=== PATIENT | female | born 1965 | race Caucasian/White ===

== ENCOUNTER 2017-01-10 07:29 | Day surgery (SDC) | payer OTHER ==
[~2017-01-10] VITALS: Ht 162.6 cm; Wt 88.5 kg
[~2017-01-10 07:29] MED LIST: ACCOLATE10 MG; AMOXICILLIN/CL875 MG PO; AMOXICILLIN875 MG OR; AMOXICILLIN875 MG PO; ASPIRIN CHEWABL81 MG PO; AUGMENTIN875TAB OR; AUGMENTIN875TAB PO; CHANTIX STARTIN0.5 & PO; CRESTOR20 MG PO; CYCLOBENZAPRINE10 MG PO; FLEXERIL10 MG PO; FLONASE NASAL50 MCG; HYDROCODONE/ACE1 TA1 OR; LEVAQUIN750 MG PO; LEVOTHROID100 MCG OR; LEVOTHYROXIN125 MCG PO; LIPITOR20 MG PO; MULTIVITAMIN; NAPROSYN500 MG PO; NAPROXEN500 MG PO; NIZORAL2 % EX; PREDNISONE20 MG PO; PROAIR HFA IN; SKELAXIN800 MG PO; SYNTHROID100 MCG PO; TESSALON200 MG PO; ULTRAM50 M1 PO; XANAX0.25 MG PO; XANAX0.5 MG PO; ZESTRIL10 M1 PO; ZOLOFT50 MG PO
[2017-01-10] MEDS ORDERED: CYMBALTA30 MG PO (08:42)
[2017-01-10] MEDS ORDERED: NEURONTIN100 MG PO (08:43)
[2017-01-10 12:00] VITALS: BP 149/86
== END 2017-01-10 10:35 | disposition home or self-care (01) | DRG 552 ==
LOC: ORM 07:29
PROVIDERS: ATTEND Anesthesiology Pain Medicine
PROC: 3E0T3BZ Introduction of Anesthetic Agent into Peripheral Nerves and Plexi, Percutaneous Approach (ICD-10-PCS; principal; 2017-01-10)
PROC: 3E0T33Z Introduction of Anti-inflammatory into Peripheral Nerves and Plexi, Percutaneous Approach (ICD-10-PCS; 2017-01-10)
DX: M54.2 Cervicalgia (principal); M25.519 Pain in unspecified shoulder; R06.4 Hyperventilation

== ENCOUNTER 2017-01-24 07:17 | Day surgery (SDC) | payer OTHER ==
[~2017-01-24] VITALS: Ht 162.6 cm; Wt 88.5 kg
[~2017-01-24 07:17] MED LIST changes: +CYMBALTA30 MG PO; +NEURONTIN100 MG PO
[2017-01-24 09:19] VITALS: BP 121/64
== END 2017-01-24 09:45 | disposition home or self-care (01) | DRG 552 ==
LOC: ORM 07:17
PROVIDERS: ATTEND Anesthesiology Pain Medicine
PROC: 3E0U33Z Introduction of Anti-inflammatory into Joints, Percutaneous Approach (ICD-10-PCS; principal; 2017-01-24)
PROC: 3E0U3BZ Introduction of Anesthetic Agent into Joints, Percutaneous Approach (ICD-10-PCS; 2017-01-24)
DX: M54.2 Cervicalgia (principal)

== ENCOUNTER 2017-02-06 10:25 | Inpatient (IN) | payer OTHER ==
[~2017-02-06] VITALS: Ht 162.6 cm; Wt 84.6 kg
[2017-02-06 11:00] LABS: HEMATOCRIT 53.1 % (37.0-47.0); HEMOGLOBIN 17.4 g/dl (12.0-16.0); IMMATURE GRANULOCYTES 0.5 % (0.0-1.0); MEAN CELL VOLUME 93.3 fL CALC (80.0-100.0); MEAN CORPUSCULAR HGB 30.6 pG CALC (26.0-32.0); MEAN CORPUSCULAR HGB CONC 32.8 g/L CALC (32.0-36.0); NEUT# 7.63 thou/uL (2.00-7.15); RED BLOOD COUNT 5.69 mill/uL (4.20-5.60); RED CELL DISTRI WIDTH 13.2 % (11.5-15.5)
[2017-02-06 11:17] LABS: ALBUMIN 4.7 g/dL (3.2-5.0); ALKALINE PHOSPHATASE 120 u/l (38-126); ANION GAP 17 (6-22 (CALC)); BILIRUBIN, TOTAL 0.7 mg/dL (0.0-1.4); BUN 14 mg/dL (7-17); BUN/CREATININE RATIO 20 (12-20 (CALC)); CALCIUM 9.8 mg/dL (8.4-10.2); CARBON DIOXIDE 30 mmol/l (22-30); CHLORIDE 98 mmol/l (95-108); CREATININE 0.7 mg/dL (0.5-1.0); GFR > 60 ML/MIN (>=60 (CALC)); GFR FOR AFR.AMER. > 60 ML/MIN (>=60 (CALC)); GLUCOSE 160 mg/dL (65-105); POTASSIUM 4.5 mmol/l (3.5-5.1); SGOT/AST 37 u/l (14-36); SGPT/ALT 61 u/l (9-52); SODIUM 140 mmol/l (137-146); TOTAL PROTEIN 8.5 g/dL (6.3-8.2)
[2017-02-06 11:19] LABS: INFLUENZA A NONE DETECTED (NONE DETECT); INFLUENZA B NONE DETECTED (NONE DETECT)
[2017-02-06 11:28] LABS: MYOGLOBIN 52 ng/mL (0 - 62)
[2017-02-06 13:49] VITALS: BP 138/84
[2017-02-06 17:00] VITALS: BP 135/69
[2017-02-06 19:47] VITALS: BP 145/70
[2017-02-07 04:32] VITALS: BP 132/76
[2017-02-07 05:10] LABS: HEMATOCRIT 46.7 % (37.0-47.0); HEMOGLOBIN 15.3 g/dl (12.0-16.0); IMMATURE GRANULOCYTES 0.7 % (0.0-1.0); MEAN CELL VOLUME 93.8 fL CALC (80.0-100.0); MEAN CORPUSCULAR HGB 30.7 pG CALC (26.0-32.0); MEAN CORPUSCULAR HGB CONC 32.8 g/L CALC (32.0-36.0); NEUT# 6.09 thou/uL (2.00-7.15); RED BLOOD COUNT 4.98 mill/uL (4.20-5.60); RED CELL DISTRI WIDTH 13.2 % (11.5-15.5)
[2017-02-07 05:36] LABS: ANION GAP 16 (6-22 (CALC)); BUN 15 mg/dL (7-17); BUN/CREATININE RATIO 22 (12-20 (CALC)); CALCIUM 9.5 mg/dL (8.4-10.2); CALCULATED LDLCHOLESTEROL 94 mg/dL (62-129 (CALC)); CARBON DIOXIDE 27 mmol/l (22-30); CHLORIDE 101 mmol/l (95-108); CREATININE 0.7 mg/dL (0.5-1.0); GFR > 60 ML/MIN (>=60 (CALC)); GFR FOR AFR.AMER. > 60 ML/MIN (>=60 (CALC)); GLUCOSE 157 mg/dL (65-105); HDL CHOLESTEROL 47 mg/dL (>=40); POTASSIUM 4.5 mmol/l (3.5-5.1); SODIUM 139 mmol/l (137-146); TOTAL CHOLESTEROL 154 mg/dl (0-199); TOTAL TRIGLYCERIDES 64 mg/dl (30-149); VLDL CHOLESTROL 13 mg/dl (2-49 (CALC))
[2017-02-07 08:35] VITALS: BP 121/75
[2017-02-07 10:43] LABS: URINE BILIRUBIN - DIPSTICK NEGATIVE (NEGATIVE); URINE BLOOD DIPSTICK SMALL (NEGATIVE); URINE CLARITY CLEAR; URINE COLOR YELLOW; URINE GLUCOSE - DIPSTICK NEGATIVE (NEGATIVE); URINE KETONE NEGATIVE (NEGATIVE); URINE LEUK ESTERASE NEGATIVE (NEGATIVE); URINE NITRITE - DIPSTICK NEGATIVE (Negative); URINE PROTEIN - DIPSTICK NEGATIVE (NEG-TRACE); URINE UROBILINOGEN - DIPSTICK 0.2 E.U./dL (0.2)
[2017-02-07 10:52] LABS: URINE SQUAMOUS EPITHELIAL CELL FEW EPI/hpf (0-FEW)
[2017-02-07 10:53] LABS: URINE BACTERIA FEW hpf; URINE RBC 0-2 RBC/hpf (0-5)
[2017-02-07 15:40] VITALS: BP 127/60
[2017-02-07 19:48] VITALS: BP 133/55
[2017-02-08 05:15] VITALS: BP 106/48
[2017-02-08 08:15] VITALS: BP 118/42
[2017-02-08 16:11] VITALS: BP 107/59
[2017-02-08 19:05] VITALS: BP 126/64
[2017-02-09 03:51] VITALS: BP 119/52
[2017-02-09 06:05] LABS: HEMATOCRIT 46.3 % (37.0-47.0); HEMOGLOBIN 14.8 g/dl (12.0-16.0); IMMATURE GRANULOCYTES 0.9 % (0.0-1.0); MEAN CELL VOLUME 96.9 fL CALC (80.0-100.0); NEUT# 8.82 thou/uL (2.00-7.15); RED BLOOD COUNT 4.78 mill/uL (4.20-5.60); RED CELL DISTRI WIDTH 13.4 % (11.5-15.5)
[2017-02-09 06:12] LABS: ANION GAP 15 (6-22 (CALC)); BUN 20 mg/dL (7-17); BUN/CREATININE RATIO 28 (12-20 (CALC)); CALCIUM 9.7 mg/dL (8.4-10.2); CARBON DIOXIDE 31 mmol/l (22-30); CHLORIDE 98 mmol/l (95-108); CREATININE 0.7 mg/dL (0.5-1.0); GFR > 60 ML/MIN (>=60 (CALC)); GFR FOR AFR.AMER. > 60 ML/MIN (>=60 (CALC)); GLUCOSE 166 mg/dL (65-105); SODIUM 139 mmol/l (137-146)
[2017-02-09 07:36] VITALS: BP 106/66
[2017-02-09 08:56] VITALS: BP 106/66
[2017-02-09] MEDS ORDERED: LEVAQUIN750 MG PO (11:05)
[2017-02-09] MEDS ORDERED: BIOTUSSIN PO (11:05)
[2017-02-09] MEDS ORDERED: IPRATROPIU0.5 MG/3 M NEB (11:05)
[2017-02-09] MEDS ORDERED: LOSARTAN POT50 MG PO (11:05)
[2017-02-09] MEDS ORDERED: PREDNISONE10 MG PO (11:05)
== END 2017-02-09 12:45 | disposition home or self-care (01) | DRG 189 ==
LOC: ENPENDDIS → ED 10:25 → ED-I 11:55 → ED 12:38 → MS2 12:39
PROVIDERS: Emergency Medicine; ADMIT Internal Medicine; ATTEND Internal Medicine
DX: J96.21 Acute and chronic respiratory failure with hypoxia (principal); J44.1 Chronic obstructive pulmonary disease with (acute) exacerbation; I10 Essential (primary) hypertension; E03.9 Hypothyroidism, unspecified; E78.5 Hyperlipidemia, unspecified; F32.9 Major depressive disorder, single episode, unspecified; M19.90 Unspecified osteoarthritis, unspecified site; F17.210 Nicotine dependence, cigarettes, uncomplicated; F41.9 Anxiety disorder, unspecified; M48.00 Spinal stenosis, site unspecified
CPT/HCPCS: J1650

== ENCOUNTER 2017-04-21 22:06 | Emergency (ER) | payer OTHER ==
[~2017-04-21] VITALS: Ht 162.6 cm; Wt 86.8 kg
[~2017-04-21 22:06] MED LIST changes: +BIOTUSSIN PO; +IPRATROPIU0.5 MG/3 M NEB; +LOSARTAN POT50 MG PO; +PREDNISONE10 MG PO
[2017-04-21] MEDS ORDERED: LIDOCAINE22 EX (23:20)
[2017-04-21] MEDS ORDERED: LORTAB 10-325 M1 TAB PO (23:20)
[2017-04-21] MEDS ORDERED: ANUCORT-HC25 MG RE (23:20)
[2017-04-21 23:33] VITALS: BP 137/82
== END 2017-04-21 23:35 | disposition home or self-care (01) | DRG 395 ==
LOC: ED 22:06
DX: K64.4 Residual hemorrhoidal skin tags (principal); K62.89 Other specified diseases of anus and rectum

== ENCOUNTER 2017-09-18 10:09 | Observation (INO) | payer OTHER ==
[~2017-09-18] VITALS: Ht 162.6 cm; Wt 81.0 kg
[~2017-09-18 10:09] MED LIST changes: +ANUCORT-HC25 MG RE; +LIDOCAINE22 EX; +LORTAB 10-325 M1 TAB PO
[2017-09-18 11:47] LABS: HEMATOCRIT 46.7 % (37.0-47.0); IMMATURE GRANULOCYTES 0.5 % (0.0-1.0); MEAN CELL VOLUME 89.3 fL CALC (80.0-100.0); MEAN CORPUSCULAR HGB 30.6 pG CALC (26.0-32.0); MEAN CORPUSCULAR HGB CONC 34.3 g/L CALC (32.0-36.0); NEUT# 6.61 thou/uL (2.00-7.15); RED BLOOD COUNT 5.23 mill/uL (4.20-5.60); RED CELL DISTRI WIDTH 12.7 % (11.5-15.5)
[2017-09-18 11:59] LABS: ALBUMIN 4.7 g/dL (3.2-5.0); ALKALINE PHOSPHATASE 108 u/l (38-126); ANION GAP 15 (6-22 (CALC)); BILIRUBIN, TOTAL 0.4 mg/dL (0.0-1.4); BUN 8 mg/dL (7-17); BUN/CREATININE RATIO 12 (12-20 (CALC)); CALCIUM 9.5 mg/dL (8.4-10.2); CARBON DIOXIDE 28 mmol/l (22-30); CHLORIDE 105 mmol/l (95-108); CREATININE 0.7 mg/dL (0.5-1.0); GFR > 60 ML/MIN (>=60 (CALC)); GFR FOR AFR.AMER. > 60 ML/MIN (>=60 (CALC)); GLUCOSE 124 mg/dL (65-105); POTASSIUM 3.7 mmol/l (3.5-5.1); SGOT/AST 33 u/l (14-36); SGPT/ALT 48 u/l (9-52); SODIUM 145 mmol/l (137-146); TOTAL PROTEIN 7.5 g/dL (6.3-8.2)
[2017-09-18 12:11] LABS: MYOGLOBIN 83 ng/mL (0 - 62)
[2017-09-18 15:08] VITALS: BP 140/70
[2017-09-18 16:34] LABS: CHOLESTEROL HDL RATIO 4.7 (<4.4 (CALC))
[2017-09-18 19:00] VITALS: BP 128/67
[2017-09-18 20:53] LABS: URINE BILIRUBIN - DIPSTICK NEGATIVE (NEGATIVE); URINE BLOOD DIPSTICK SMALL (NEGATIVE); URINE COLOR YELLOW; URINE GLUCOSE - DIPSTICK NEGATIVE (NEGATIVE); URINE KETONE NEGATIVE (NEGATIVE); URINE LEUK ESTERASE NEGATIVE (NEGATIVE); URINE NITRITE - DIPSTICK NEGATIVE (Negative); URINE PROTEIN - DIPSTICK NEGATIVE (NEG-TRACE); URINE UROBILINOGEN - DIPSTICK 0.2 E.U./dL (0.2)
[2017-09-18 21:05] LABS: URINE CLARITY CLEAR; URINE WBC 0-2 WBC/hpf (0-5)
[2017-09-18 21:06] LABS: URINE SQUAMOUS EPITHELIAL CELL FEW EPI/hpf (0-FEW)
[2017-09-19 05:22] VITALS: BP 112/68
[2017-09-19 06:04] LABS: HEMATOCRIT 46.5 % (37.0-47.0); HEMOGLOBIN 15.8 g/dl (12.0-16.0); IMMATURE GRANULOCYTES 0.9 % (0.0-1.0); MEAN CELL VOLUME 89.4 fL CALC (80.0-100.0); MEAN CORPUSCULAR HGB 30.4 pG CALC (26.0-32.0); NEUT# 12.68 thou/uL (2.00-7.15); RED BLOOD COUNT 5.2 mill/uL (4.20-5.60); RED CELL DISTRI WIDTH 12.7 % (11.5-15.5)
[2017-09-19 06:13] LABS: ANION GAP 22 (6-22 (CALC)); BUN 14 mg/dL (7-17); BUN/CREATININE RATIO 16 (12-20 (CALC)); CALCIUM 9.7 mg/dL (8.4-10.2); CARBON DIOXIDE 22 mmol/l (22-30); CHLORIDE 105 mmol/l (95-108); CREATININE 0.9 mg/dL (0.5-1.0); GFR > 60 ML/MIN (>=60 (CALC)); GFR FOR AFR.AMER. > 60 ML/MIN (>=60 (CALC)); GLUCOSE 201 mg/dL (65-105); MAGNESIUM 1.8 mg/dL (1.6-2.3); POTASSIUM 4.1 mmol/l (3.5-5.1); SODIUM 145 mmol/l (137-146)
[2017-09-19 07:35] VITALS: BP 113/69
[2017-09-19 08:17] VITALS: BP 113/69
[2017-09-19] MEDS ORDERED: PREDNISONE10 MG PO (12:14)
[2017-09-19] MEDS ORDERED: ZPAK PO (12:14)
[2017-09-19] MEDS ORDERED: ROBITUSSIN AC10 ML PO (12:43)
== END 2017-09-19 13:00 | disposition home or self-care (01) | DRG 192 ==
LOC: ED 10:09 → ED-I 13:35 → ED 14:19 → MS2 14:20
PROVIDERS: Emergency Medicine; Nurse Practitioner Family; ADMIT Internal Medicine; ATTEND Internal Medicine
DX: J44.1 Chronic obstructive pulmonary disease with (acute) exacerbation (principal); E03.9 Hypothyroidism, unspecified; J44.0 Chronic obstructive pulmonary disease with (acute) lower respiratory infection; J20.9 Acute bronchitis, unspecified; E11.9 Type 2 diabetes mellitus without complications; F17.210 Nicotine dependence, cigarettes, uncomplicated; E78.5 Hyperlipidemia, unspecified; M19.90 Unspecified osteoarthritis, unspecified site; F32.9 Major depressive disorder, single episode, unspecified; Z79.84 Long term (current) use of oral hypoglycemic drugs
CPT/HCPCS: G0378

== ENCOUNTER 2018-03-16 00:16 | Emergency (ER) | payer OTHER ==
[~2018-03-16] VITALS: Ht 162.6 cm; Wt 73.6 kg
[~2018-03-16 00:16] MED LIST changes: +ROBITUSSIN AC10 ML PO; +ZPAK PO
[2018-03-16] MEDS ORDERED: LISINOPRIL20 M1 PO (00:26)
[2018-03-16 01:10] LABS: HEMATOCRIT 49.7 % (37.0-47.0); IMMATURE GRANULOCYTES 0.3 % (0.0-1.0); MEAN CELL VOLUME 89.5 fL CALC (80.0-100.0); MEAN CORPUSCULAR HGB 30.6 pG CALC (26.0-32.0); MEAN CORPUSCULAR HGB CONC 34.2 g/L CALC (32.0-36.0); NEUT# 7.26 thou/uL (2.00-7.15); RED BLOOD COUNT 5.55 mill/uL (4.20-5.60); RED CELL DISTRI WIDTH 13.3 % (11.5-15.5)
[2018-03-16 01:17] LABS: ACT PARTIAL THROMBO TIME 28.2 SECONDS (20.0-32.5); INTERNATIONAL NORMALIZED RATIO 0.9 RATIO (0.7-1.3); PROTHROMBIN TIME 10.4 SECONDS (9.0-12.5)
[2018-03-16 01:35] VITALS: BP 139/88
== END 2018-03-16 01:35 | disposition home or self-care (01) | DRG 151 ==
LOC: ED 00:16
PROVIDERS: Emergency Medicine
DX: R04.0 Epistaxis (principal); F17.210 Nicotine dependence, cigarettes, uncomplicated; I10 Essential (primary) hypertension

== ENCOUNTER 2018-05-12 17:10 | Observation (INO) | payer MEDICAID ==
[~2018-05-12] VITALS: Ht 162.6 cm; Wt 75.3 kg
[~2018-05-12 17:10] MED LIST changes: +LISINOPRIL20 M1 PO
[2018-05-12 17:45] LABS: HEMATOCRIT 47.6 % (37.0-47.0); IMMATURE GRANULOCYTES 1.9 % (0.0-5.0); MEAN CELL VOLUME 92.2 fL CALC (80.0-100.0); MEAN CORPUSCULAR HGB CONC 33.6 g/L CALC (32.0-36.0); NEUT# 11.98 thou/uL (2.00-7.15); RED BLOOD COUNT 5.16 mill/uL (4.20-5.60); RED CELL DISTRI WIDTH 12.6 % (11.5-15.5)
[2018-05-12 17:53] LABS: ALBUMIN 4.6 g/dL (3.2-5.0); ALKALINE PHOSPHATASE 123 u/l (38-126); ANION GAP 15 (6-22 (CALC)); BILIRUBIN, TOTAL 0.3 mg/dL (0.0-1.4); BUN 17 mg/dL (7-17); BUN/CREATININE RATIO 23 (12-20 (CALC)); CARBON DIOXIDE 27 mmol/l (22-30); CHLORIDE 103 mmol/l (95-108); CREATININE 0.8 mg/dL (0.5-1.0); GFR > 60 ML/MIN (>=60 (CALC)); GFR FOR AFR.AMER. > 60 ML/MIN (>=60 (CALC)); POTASSIUM 4.3 mmol/l (3.5-5.1); SGOT/AST 27 u/l (14-36); SGPT/ALT 45 u/l (9-52); SODIUM 140 mmol/l (137-146)
[2018-05-12 18:05] LABS: MYOGLOBIN 36 ng/mL (0 - 62)
[2018-05-12 19:10] VITALS: BP 126/69
[2018-05-13 04:08] VITALS: BP 100/64
[2018-05-13 04:48] LABS: URINE BILIRUBIN - DIPSTICK NEGATIVE (NEGATIVE); URINE BLOOD DIPSTICK MODERATE (NEGATIVE); URINE COLOR YELLOW; URINE GLUCOSE - DIPSTICK NEGATIVE (NEGATIVE); URINE KETONE NEGATIVE (NEGATIVE); URINE LEUK ESTERASE NEGATIVE (NEGATIVE); URINE NITRITE - DIPSTICK NEGATIVE (Negative); URINE PROTEIN - DIPSTICK NEGATIVE (NEG-TRACE); URINE UROBILINOGEN - DIPSTICK 0.2 E.U./dL (0.2)
[2018-05-13 05:41] LABS: URINE CLARITY CLEAR; URINE WBC 0-2 WBC/hpf (0-5)
[2018-05-13 05:42] LABS: URINE BACTERIA RARE hpf
[2018-05-13 07:45] VITALS: BP 117/71
[2018-05-13 15:20] VITALS: BP 118/66
[2018-05-13] MEDS ORDERED: METFORMIN500 M2 PO (16:08)
[2018-05-13 19:00] VITALS: BP 114/66
[2018-05-14 05:04] VITALS: BP 125/68
[2018-05-14 06:01] LABS: HEMATOCRIT 45.9 % (37.0-47.0); IMMATURE GRANULOCYTES 2.1 % (0.0-5.0); MEAN CELL VOLUME 93.9 fL CALC (80.0-100.0); MEAN CORPUSCULAR HGB 30.7 pG CALC (26.0-32.0); MEAN CORPUSCULAR HGB CONC 32.7 g/L CALC (32.0-36.0); NEUT# 10.32 thou/uL (2.00-7.15); RED BLOOD COUNT 4.89 mill/uL (4.20-5.60); RED CELL DISTRI WIDTH 12.5 % (11.5-15.5)
[2018-05-14 06:10] LABS: BUN 21 mg/dL (7-17); BUN/CREATININE RATIO 26 (12-20 (CALC)); CARBON DIOXIDE 29 mmol/l (22-30); CHLORIDE 101 mmol/l (95-108); CREATININE 0.8 mg/dL (0.5-1.0); GFR > 60 ML/MIN (>=60 (CALC)); GFR FOR AFR.AMER. > 60 ML/MIN (>=60 (CALC)); MAGNESIUM 2.2 mg/dL (1.6-2.3); SODIUM 139 mmol/l (137-146)
[2018-05-14 06:21] LABS: ANION GAP 14 (6-22 (CALC)); POTASSIUM 5.2 mmol/l (3.5-5.1)
[2018-05-14 08:40] VITALS: BP 123/52
[2018-05-14 15:00] VITALS: BP 120/67
[2018-05-14 19:58] VITALS: BP 129/58
[2018-05-15 03:45] VITALS: BP 115/57
[2018-05-15 05:45] LABS: ANION GAP 16 (6-22 (CALC)); BUN 24 mg/dL (7-17); BUN/CREATININE RATIO 31 (12-20 (CALC)); CARBON DIOXIDE 28 mmol/l (22-30); CHLORIDE 101 mmol/l (95-108); CREATININE 0.8 mg/dL (0.5-1.0); GFR > 60 ML/MIN (>=60 (CALC)); GFR FOR AFR.AMER. > 60 ML/MIN (>=60 (CALC)); POTASSIUM 4.8 mmol/l (3.5-5.1); SODIUM 140 mmol/l (137-146)
[2018-05-15 08:58] VITALS: BP 110/53
[2018-05-15] MEDS ORDERED: LEVAQUIN750 MG PO (11:38)
[2018-05-15] MEDS ORDERED: PREDNISONE10 MG PO (11:38)
[2018-05-15] MEDS ORDERED: ROBITUSSIN AC10 ML PO (11:38)
== END 2018-05-15 13:00 | disposition home or self-care (01) ==
LOC: ED 17:10 → ED-I 17:57 → ED 18:16 → MS2 18:17
PROVIDERS: Emergency Medicine; Nurse Practitioner Family; ADMIT General Practice; ATTEND General Practice
DX: J44.1 Chronic obstructive pulmonary disease with (acute) exacerbation (principal); J20.9 Acute bronchitis, unspecified; J44.0 Chronic obstructive pulmonary disease with (acute) lower respiratory infection; Z99.81 Dependence on supplemental oxygen; E11.9 Type 2 diabetes mellitus without complications; I10 Essential (primary) hypertension; E03.9 Hypothyroidism, unspecified; F17.210 Nicotine dependence, cigarettes, uncomplicated; E78.5 Hyperlipidemia, unspecified; F32.9 Major depressive disorder, single episode, unspecified; M19.90 Unspecified osteoarthritis, unspecified site; Z79.84 Long term (current) use of oral hypoglycemic drugs; R07.9 Chest pain, unspecified; R06.02 Shortness of breath
CPT/HCPCS: G0378

== ENCOUNTER 2018-09-15 16:55 | Emergency (ER) | payer SELFPAY ==
[~2018-09-15] VITALS: Ht 162.6 cm; Wt 77.3 kg
[~2018-09-15 16:55] MED LIST changes: +METFORMIN500 M2 PO
[2018-09-15] MEDS ORDERED: LEVAQUIN500 MG PO (18:54)
[2018-09-15 19:07] VITALS: BP 120/76
== END 2018-09-15 19:07 | disposition home or self-care (01) | DRG 151 ==
LOC: ED 16:55
PROC: 2Y41X5Z Packing of Nasal Region using Packing Material (ICD-10-PCS; principal; 2018-09-15)
DX: R04.0 Epistaxis (principal); R09.81 Nasal congestion; R51 Headache; F17.210 Nicotine dependence, cigarettes, uncomplicated

== ENCOUNTER 2018-09-16 03:28 | Emergency (ER) | payer SELFPAY ==
[~2018-09-16] VITALS: Ht 162.6 cm; Wt 77.0 kg
[~2018-09-16 03:28] MED LIST changes: +LEVAQUIN500 MG PO
[2018-09-16 05:29] VITALS: BP 142/73
== END 2018-09-16 05:30 | disposition home or self-care (01) | DRG 151 ==
LOC: ED 03:28
PROC: 2Y41X5Z Packing of Nasal Region using Packing Material (ICD-10-PCS; principal; 2018-09-16)
DX: R04.0 Epistaxis (principal); E11.9 Type 2 diabetes mellitus without complications; I10 Essential (primary) hypertension; J44.9 Chronic obstructive pulmonary disease, unspecified; E03.9 Hypothyroidism, unspecified; F41.9 Anxiety disorder, unspecified; F17.200 Nicotine dependence, unspecified, uncomplicated

== ENCOUNTER 2018-10-14 12:20 | Emergency (ER) | payer SELFPAY ==
[~2018-10-14] VITALS: Ht 162.6 cm; Wt 75.0 kg
[2018-10-14] MEDS ORDERED: DELTASONE20 MG PO ×2 (14:55→14:59)
[2018-10-14] MEDS ORDERED: TESSALON PER100 MG PO ×2 (14:55→14:59)
[2018-10-14] MEDS ORDERED: ZITHROMAX250 MG PO (14:56)
[2018-10-14 15:35] VITALS: BP 140/80
== END 2018-10-14 15:45 | disposition home or self-care (01) | DRG 202 ==
LOC: ED 12:20
DX: J40 Bronchitis, not specified as acute or chronic (principal); J44.1 Chronic obstructive pulmonary disease with (acute) exacerbation; F17.290 Nicotine dependence, other tobacco product, uncomplicated; R05 Cough; R09.81 Nasal congestion; R06.02 Shortness of breath; R50.9 Fever, unspecified; R06.2 Wheezing

== ENCOUNTER 2020-01-15 | Emergency (ER) | payer MEDICARE, MEDICAID ==
[~2020-01-15] MED LIST changes: +DELTASONE20 MG PO; +TESSALON PER100 MG PO; +ZITHROMAX250 MG PO
[2020-01-15 14:00] LABS: HEMATOCRIT 49.4 % (37.0-47.0); HEMOGLOBIN 16.3 g/dl (12.0-16.0); IMMATURE GRANULOCYTES 0.6 % (0.0-5.0); MEAN CELL VOLUME 90.5 fL CALC (80.0-100.0); MEAN CORPUSCULAR HGB 29.9 pG CALC (26.0-32.0); NEUT# 10.95 thou/uL (2.00-7.15); RED BLOOD COUNT 5.46 mill/uL (4.20-5.60); RED CELL DISTRI WIDTH 12.9 % (11.5-15.5)
[2020-01-15 14:03] LABS: ALBUMIN 4.8 g/dL (3.2-5.0); ALKALINE PHOSPHATASE 140 u/l (38-126); AMYLASE 65 u/l (30-110); ANION GAP 18 (6-22 (CALC)); BILIRUBIN, TOTAL 0.5 mg/dL (0.0-1.4); BUN 14 mg/dL (7-17); BUN/CREATININE RATIO 16 (12-20 (CALC)); CARBON DIOXIDE 27 mmol/l (22-30); CHLORIDE 98 mmol/l (95-108); CREATININE 0.9 mg/dL (0.5-1.0); GFR > 60 ML/MIN (>=60 (CALC)); GFR FOR AFR.AMER. > 60 ML/MIN (>=60 (CALC)); LIPASE 133 u/l (23-300); POTASSIUM 4.6 mmol/l (3.5-5.1); SGOT/AST 39 u/l (14-36); SODIUM 138 mmol/l (137-146); TOTAL PROTEIN 8.1 g/dL (6.3-8.2)
[2020-01-15 14:57] LABS: URINE BLOOD DIPSTICK LARGE (NEGATIVE); URINE GLUCOSE - DIPSTICK NEGATIVE (NEGATIVE); URINE KETONE NEGATIVE (NEGATIVE); URINE LEUK ESTERASE NEGATIVE (NEGATIVE); URINE NITRITE - DIPSTICK NEGATIVE (Negative); URINE PH 6.5 (4.5-8.0); URINE PROTEIN - DIPSTICK 30 mg/dL (NEG-TRACE); URINE UROBILINOGEN - DIPSTICK 0.2 E.U./dL (0.2)
[2020-01-15 15:03] LABS: URINE BILIRUBIN - DIPSTICK SMALL (NEGATIVE)
[2020-01-15 15:04] LABS: URINE COLOR RED
[2020-01-15 15:10] LABS: URINE RBC TNTC RBC/hpf (0-5); URINE SQUAMOUS EPITHELIAL CELL FEW EPI/hpf (0-FEW)
[2020-01-15] MEDS ORDERED: TAMSULOSIN0.4 MG PO (16:12)
[2020-01-15] MEDS ORDERED: LORTAB 1010 MG PO (16:12)
[2020-01-15] MEDS ORDERED: ONDANSETRON4 MG PO (16:12)
== END 2020-01-15 16:32 | disposition home or self-care (01) ==
PROVIDERS: Emergency Medicine
DX: N20.0 Calculus of kidney (principal); E11.9 Type 2 diabetes mellitus without complications; I10 Essential (primary) hypertension; J44.9 Chronic obstructive pulmonary disease, unspecified; E03.9 Hypothyroidism, unspecified; F17.210 Nicotine dependence, cigarettes, uncomplicated; Z79.84 Long term (current) use of oral hypoglycemic drugs
CPT/HCPCS: Q9967

== ENCOUNTER 2020-01-23 | Day surgery (SDC) | payer MEDICARE, MEDICAID ==
[~2020-01-23] MED LIST changes: +LORTAB 1010 MG PO; +ONDANSETRON4 MG PO; +TAMSULOSIN0.4 MG PO
[2020-01-23] MEDS ORDERED: PROAIR HFA IN (09:38)
== END 2020-01-23 12:51 | disposition home or self-care (01) ==
PROC: 0TC38ZZ Extirpation of Matter from Right Kidney Pelvis, Via Natural or Artificial Opening Endoscopic (ICD-10-PCS; principal; 2020-01-23)
PROC: 0T768DZ Dilation of Right Ureter with Intraluminal Device, Via Natural or Artificial Opening Endoscopic (ICD-10-PCS; 2020-01-23)
PROC: BT1DZZZ Fluoroscopy of Right Kidney, Ureter and Bladder (ICD-10-PCS; 2020-01-23)
DX: N13.2 Hydronephrosis with renal and ureteral calculous obstruction (principal); J44.9 Chronic obstructive pulmonary disease, unspecified; I10 Essential (primary) hypertension; E11.9 Type 2 diabetes mellitus without complications; E03.9 Hypothyroidism, unspecified; F17.210 Nicotine dependence, cigarettes, uncomplicated
CPT/HCPCS: Q9967

== ENCOUNTER 2020-03-09 20:31 | Observation (INO) | payer MEDICARE, MEDICAID ==
[~2020-03-09] VITALS: Ht 162.6 cm; Wt 89.2 kg
--- NOTE | 2020-03-09 20:53 | NUR ---
PT. TO ROOM 9 WITH C/O ABD. PAIN PAIN AND PAIN UPON URINATION AND FREQUENCY STARTING ON 03/07/20.
[2020-03-09 21:14] LABS: URINE BILIRUBIN - DIPSTICK NEGATIVE (NEGATIVE); URINE BLOOD DIPSTICK LARGE (NEGATIVE); URINE COLOR YELLOW; URINE GLUCOSE - DIPSTICK NEGATIVE (NEGATIVE); URINE KETONE NEGATIVE (NEGATIVE); URINE NITRITE - DIPSTICK NEGATIVE (Negative); URINE PH 6.5 (4.5-8.0); URINE PROTEIN - DIPSTICK >=300 mg/dL (NEG-TRACE); URINE UROBILINOGEN - DIPSTICK 0.2 E.U./dL (0.2)
[2020-03-09 21:22] LABS: URINE LEUK ESTERASE SMALL (NEGATIVE)
[2020-03-09 21:28] LABS: URINE SQUAMOUS EPITHELIAL CELL FEW EPI/hpf (0-FEW)
[2020-03-09 21:39] LABS: HEMATOCRIT 44.8 % (37.0-47.0); HEMOGLOBIN 14.8 g/dl (12.0-16.0); IMMATURE GRANULOCYTES 0.7 % (0.0-5.0); MEAN CORPUSCULAR HGB 29.7 pG CALC (26.0-32.0); NEUT# 13.56 thou/uL (2.00-7.15); RED BLOOD COUNT 4.98 mill/uL (4.20-5.60); RED CELL DISTRI WIDTH 12.6 % (11.5-15.5)
--- NOTE | 2020-03-09 21:40 | NUR ---
IVF IV PAIN MED AND IV ANTIEMETIC GIVEN PER MD ORDER.
[2020-03-09 21:57] LABS: ALBUMIN 4.4 g/dL (3.2-5.0); ALKALINE PHOSPHATASE 103 u/l (38-126); AMYLASE 63 u/l (30-110); ANION GAP 13 (6-22 (CALC)); BILIRUBIN, TOTAL 0.4 mg/dL (0.0-1.4); BUN 9 mg/dL (7-17); BUN/CREATININE RATIO 11 (12-20 (CALC)); CARBON DIOXIDE 26 mmol/l (22-30); CHLORIDE 101 mmol/l (95-108); CREATININE 0.9 mg/dL (0.5-1.0); GFR > 60 ML/MIN (>=60 (CALC)); GFR FOR AFR.AMER. > 60 ML/MIN (>=60 (CALC)); LIPASE 152 u/l (23-300); SGOT/AST 22 u/l (14-36); SODIUM 136 mmol/l (137-146); TOTAL PROTEIN 7.6 g/dL (6.3-8.2)
--- NOTE | 2020-03-09 22:00 | NUR ---
IV ABT. STARTED PER MD ORDER.
--- NOTE | 2020-03-09 22:03 | NUR ---
PT. STATES HER ABD. PAIN IS NOW DECREASED TO A 4 ON A SCALE OF 1-10.
--- NOTE | 2020-03-09 23:09 | NUR ---
MD IN ROOM TO DISCUSS CLINICAL FINDINGS WITH PT. AND TO ALSO MAKE HER AWARE OF ADMISSION, VERBALIZED UNDERSTANDING.
--- NOTE | 2020-03-09 23:40 | NUR ---
Admission Note Report Given to: FLACO RUIZ Transported by: Wheelchair X Stretcher Transported with: X Nurse Transporter X Patent IV O2 Pumper Head Location: ICU X [facility]
--- NOTE | 2020-03-09 23:50 | NUR ---
PT. TO [facility] FLOOR VIA STRETCHER, NO C/O.
[2020-03-09 23:57] VITALS: BP 143/63
--- NOTE | 2020-03-10 00:09 | NUR ---
PT. ARRIVED TO THE FLOOR VIA STRETCHER ACCOMPANIED BY ER NURSE, SARA LEMA. PT. A/A/O X3 AND AMBULATORY WITH STEADY GAIT. ORIENTED TO ROOM, CALL LIGHT, AND POC; VERBALIZES UNDERSTANDING. IV SITE PATENT AND ORDERED IVF STARTED. PT. DENIES PAIN AT THIS TIME. PT. DOES REPORT SHE HAD A LITHROTRIPSY DONE BY DR. CARABALLO APPROXIMATELY A MONTH AGO. INSTRUCTED TO CALL FOR ANY NEEDS. FROZEN DINNER WARMED UP AND PROVIDED. INSTRUCTED TO CALL FOR ANY NEEDS. CALL LIGHT IS IN REACH.
[2020-03-10 04:00] VITALS: BP 117/71
--- NOTE | 2020-03-10 04:15 | NUR ---
RESTING IN BED WITH NO DISTRESS NOTED; DENIES NEEDS/PAIN. ENCOURAGED TO CALL FOR ANY NEEDS. CALL LIGHT IS IN REACH.
[2020-03-10 08:00] VITALS: BP 119/68
--- NOTE | 2020-03-10 08:00 | NUR ---
ASSESSMENT IS COMPLETED: IV SITE IS FREE FROM REDNESS OR EDEMA. HR IS REG,PULSES ARE STRONG X4, ABD IS SOFT WITH ACTIVE BS. BREATH SOUNDS ARE CLEAR AND DIMINISHED. CONITNUE TO OSBERVE AND MONITOR.
[2020-03-10 09:11] VITALS: BP 119/68
--- NOTE | 2020-03-10 12:30 | NUR ---
PT IS RELAXING IN BED WITH NO DISTRESS NOTED. IV SITE IS FREE FROM REDNESS OR EDEMA.
[2020-03-10] MEDS ORDERED: CIPROFLOXACN500 MG PO (12:36)
--- NOTE | 2020-03-10 13:35 | NUR ---
IV SITE DISCONITNUED CATHETER INTACT. NO REDNESS OR EDEMA. DISCHARGE INSTRUCTIONS GIVEN AND VERBALIZED UNDERSTANDING. PT AMBULATED OFF THE UNIT. Discharge instructions given. Patient verbalizes understanding of same. Discharged in stable condition via Ambulatory to Home with family. All belongings sent with pt.PT HAS OWN CAR DOWNSTAIRS.
== END 2020-03-10 13:33 | disposition home or self-care (01) ==
LOC: ED 20:31 → ED-I 20:55 → ED 20:55 → ED-I 22:55 → ED 23:12 → MS2 23:13 → ED-I 23:13 → MS2 23:28
PROVIDERS: Emergency Medicine; ADMIT Internal Medicine; ATTEND Internal Medicine
DX: N12 Tubulo-interstitial nephritis, not specified as acute or chronic (principal); E11.9 Type 2 diabetes mellitus without complications; I10 Essential (primary) hypertension; J44.9 Chronic obstructive pulmonary disease, unspecified; E03.9 Hypothyroidism, unspecified; E78.5 Hyperlipidemia, unspecified; F17.210 Nicotine dependence, cigarettes, uncomplicated; B96.20 Unspecified Escherichia coli [E. coli] as the cause of diseases classified elsewhere; Z87.442 Personal history of urinary calculi; Z79.84 Long term (current) use of oral hypoglycemic drugs; Z11.59 Encounter for screening for other viral diseases
CPT/HCPCS: G0378; Q9967

== ENCOUNTER 2021-10-21 09:10 | Emergency (ER) | payer MEDICARE, MEDICAID ==
[~2021-10-21] VITALS: Ht 162.6 cm; Wt 84.0 kg
[~2021-10-21 09:10] MED LIST changes: +CIPROFLOXACN500 MG PO
[2021-10-21] MEDS ORDERED: ZPAK PO (10:26)
[2021-10-21] MEDS ORDERED: PREDNISONE50 MG PO (10:26)
[2021-10-21 11:00] VITALS: BP 136/65
== END 2021-10-21 11:00 | disposition home or self-care (01) ==
LOC: ED 09:10
DX: J06.9 Acute upper respiratory infection, unspecified (principal); J44.9 Chronic obstructive pulmonary disease, unspecified; I10 Essential (primary) hypertension; E11.9 Type 2 diabetes mellitus without complications; E03.9 Hypothyroidism, unspecified; F17.210 Nicotine dependence, cigarettes, uncomplicated; Z79.84 Long term (current) use of oral hypoglycemic drugs; Z20.822 Contact with and (suspected) exposure to COVID-19

== ENCOUNTER 2022-04-12 07:13 | Day surgery (SDC) | payer MEDICARE, MEDICAID ==
[~2022-04-12] VITALS: Ht 162.6 cm; Wt 78.0 kg
[~2022-04-12 07:13] MED LIST changes: +PREDNISONE50 MG PO
[2022-04-12] MEDS ORDERED: OZEMPIC2 MG/1.5 M SC (08:01)
[2022-04-12] MEDS ORDERED: JANUVIA100 MG PO (08:02)
[2022-04-12 11:38] VITALS: BP 120/72
== END 2022-04-12 07:15 | disposition home or self-care (01) ==
LOC: ORM 07:13
PROVIDERS: ATTEND Physical Medicine & Rehabilitation
DX: M19.012 Primary osteoarthritis, left shoulder (principal); G89.4 Chronic pain syndrome
CPT/HCPCS: Q9967

== ENCOUNTER 2022-08-30 09:27 | Day surgery (SDC) | payer MEDICARE, MEDICAID ==
[~2022-08-30] VITALS: Ht 162.6 cm; Wt 81.6 kg
[~2022-08-30 09:27] MED LIST changes: +JANUVIA100 MG PO; +OZEMPIC2 MG/1.5 M SC
[2022-08-30 11:48] VITALS: BP 118/80
== END 2022-08-30 11:38 | disposition home or self-care (01) ==
LOC: ORM 09:27
PROVIDERS: ATTEND Physical Medicine & Rehabilitation Pain Medicine
DX: M19.012 Primary osteoarthritis, left shoulder (principal); M75.52 Bursitis of left shoulder; G89.4 Chronic pain syndrome; G54.2 Cervical root disorders, not elsewhere classified
CPT/HCPCS: Q9967

== ENCOUNTER 2022-11-21 08:57 | Inpatient (IN) | payer MEDICARE, MEDICAID ==
[~2022-11-21] VITALS: Ht 162.6 cm; Wt 89.6 kg
[2022-11-21] VITALS (7 sets, daily range): BP systolic 94–119; BP diastolic 58–61
[~2022-11-21 08:57] MED LIST changes: +GABAPENTIN300 M2 PO; +OZEMPIC2 MG SC; +VARENICLINE TART1 MG
[2022-11-21] MEDS ORDERED: PERCOCET 5/321 COMBO PO (10:52)
[2022-11-21 11:53] LABS: HEMATOCRIT 31.1 % (37.0-47.0); HEMOGLOBIN 10.5 g/dl (12.0-16.0)
[2022-11-21 14:37] LABS: HEMATOCRIT 29.8 % (37.0-47.0); HEMOGLOBIN 10.1 g/dl (12.0-16.0)
--- NOTE | 2022-11-21 15:44 | NUR ---
RN RECEIVED POST OP BEDSIDE REPORT FROM SARA GALO. PT A/O X3 WITH NO SIGNS OF DISTRESS NOTED AT THIS TIME. RESPIRATIONS EVEN AND UNLABORED; PT VERBALIES FEELING POST OP DISCOMFORT. PLAN OF CARE REVIEWED WITH PT, ALL QUESTIONS ANSWERED; PT VERBALIZES UNDERSTANDING. ROOM SAFETY CHECK COMPLETED. CALL LIGHT AND PERSONAL BELONGINGS WITHIN REACH. WILL CONTINUE TO MONITOR.
--- NOTE | 2022-11-21 20:00 | NUR ---
RECEIVED REPORT FROM SARA CAMPBELL. PT ON BED LOW FOWLERS; A&O X3. EVEN AND UNLABORED RESPIRATIONS; CLEAR LUNG SOUNDS UPON AUSCULTATION. O2 @2L VIA NASAL CANNULA IN PLACE. IV SITE HEALTHY AND PATENT INFUSING FLUIDS PER ORDER. HYPOACTIVE BOWEL SOUNDS X4 QUADRANTS. 5 LAP INCISIONS NOTED TO ABD; COVERED WITH GAUZE AND DERMABOUND; CDI. JANINE DRAIN TO RIGHT SIDE; EMPTIED CONTENTS, 80 MLS OF SEROSANGUINEOUS DRAINAGE. SCD'S IN PLACE. PUREWICK IN PLACE. SAFETY PRECAUTIONS IN PLACE WITH CALL LIGHT IN REACH.
--- NOTE | 2022-11-21 21:30 | NUR ---
PT C/O ABDOMINAL PAIN, LEVEL 8/10; ADMINISTERED PAIN MED PER EMAR. SAFETY PRECAUTIONS IN PLACE WITH CALL LIGHT IN REACH.
[2022-11-21 23:24] LABS: HEMATOCRIT 30.7 % (37.0-47.0)
--- NOTE | 2022-11-22 00:15 | NUR ---
PT HAD NO URINE OUTPUT. BLADDER SCAN SHOWED 130 MLS; DR CNANON NOTIFIED OF SAME. NEW ORDER FOR YBARRA PLACEMENT. PT UP TO BSC; 100 MLS, RECHECKED BLADDER SCAN, NOW 64 MLS. PLACED 16F YBARRA, PT TOLERATED WELL. SAFETY PRECAUTIONS IN PLACE WITH CALL LIGHT IN REACH.
--- NOTE | 2022-11-22 01:20 | NUR ---
PT C/O ABDOMINAL PAIN, LEVEL 8/10; ADMINISTERED PAIN MED PER EMAR. SAFETY PRECAUTIONS IN PLACE WITH CALL LIGHT IN REACH.
[2022-11-22 04:04] VITALS: BP 120/64
--- NOTE | 2022-11-22 04:05 | NUR ---
PT SITTING ON BED LOW FOWLERS. VS COMPLETED. NO DISTRESS NOTED. PT DENIES PAIN AT THIS TIME. EMPTIED CONTENTS JANINE, 40 MLS SEROSANGUINEOUS DRAINAGE. IV SITE INFUSING FLUIDS PER ORDER. YBARRA IN PLACE; TO GRAVITY WITH CLEAR, YELLOW URINE. SAFETY PRECAUTIONS IN PLACE WITH CALL LIGHT IN REACH.
[2022-11-22 06:12] LABS: HEMATOCRIT 27.9 % (37.0-47.0); HEMOGLOBIN 9.1 g/dl (12.0-16.0)
--- NOTE | 2022-11-22 06:16 | NUR ---
PT C/O ABOMINAL PAIN, LEVEL 7/10; ADMINISTERED PAIN MED PER EMAR. SAFETY PRECAUTIONS IN PLACE WITH CALL LIGHT IN REACH.
[2022-11-22 06:33] LABS: ALKALINE PHOSPHATASE 80 u/l (38-126); BUN 13 mg/dL (7-17); BUN/CREATININE RATIO 15 (12-20 (CALC)); CHLORIDE 107 mmol/l (95-108); CREATININE 0.8 mg/dL (0.5-1.0); GFR FOR AFR.AMER. > 60 ML/MIN (>=60 (CALC)); GFR OTHER RACES > 60 ML/MIN (>=60 (CALC)); POTASSIUM 4.8 mmol/l (3.5-5.1); SODIUM 133 mmol/l (137-146)
[2022-11-22 06:44] LABS: ALBUMIN 2.9 g/dL (3.2-5.0); ANION GAP 9 (6-22 (CALC)); BILIRUBIN, TOTAL 0.2 mg/dL (0.02-1.3); CARBON DIOXIDE 22 mmol/l (22-30); SGOT/AST 254 u/l (14-36); TOTAL PROTEIN 5.3 g/dL (6.3-8.2)
--- NOTE | 2022-11-22 07:00 | NUR ---
RN at bedside for change of shift handoff and shift assessment. PT A/O x4 with no signs of acute distress noted at this time. PT verbalizes hx of COPD and respirations appear labored; pt denies shortness of breath and/or chest pain at this time. 2L O2 NC applied to maintain saturation WDL. Continuing to closely monitor labs/vitals/input/output for post-op day one. Plan of care reviewed with pt, all questions answered; pt verbalizes understanding. Incentive spirometer education provided with teachback; pillow splinting education provided with teachback. Agreed upon goals is up out of bed to chair and early ambulation. Room safety check completed, call light and personal belongings within reach; will continue to monitor.
[2022-11-22 07:23] VITALS: BP 120/64
--- NOTE | 2022-11-22 09:41 | NUR ---
PT WAS ASKED IF SHE WOULD LIKE TO SIT ON THE BEDSIDE CHAIR SO THAT I COULD CHANGE HER LINEN, PT STATED, "NO, I JUST WANT TO SLEEP FOR NOW." PT WAS TOLD TO LET ME OR OTHERS KNOW IF SHE CHANGES HER MIND. PT SHOOK HER HEAD SHOWING ACKNOWLEDGMENT.
[2022-11-22 10:44] VITALS: BP 127/65
--- NOTE | 2022-11-22 12:00 | NUR ---
RN AT BEDSIDE WITH DR CANNON FOR ROUNDS. PT POST OP DAY ONE, TOLERATING HEALING WELL. PT STABLE WITH NO SIGNS OF ACUTE DISTRESS NOTED AT THIS TIME. PLAN OF CARE REVIEWED WITH PT, ALL QUESTIONS ANSWERED; PT VERBALIZES UNDERSTANDING. WILL CONTINUE TO CLOSELY MONITOR.
[2022-11-22 12:03] LABS: HEMATOCRIT 27.4 % (37.0-47.0)
[2022-11-22 15:51] VITALS: BP 140/77
--- NOTE | 2022-11-22 19:26 | NUR ---
received report from refugio chau.
[2022-11-22 19:27] VITALS: BP 117/62
--- NOTE | 2022-11-22 20:23 | NUR ---
PT SITTING ON RECLINER; A&O X3. EVEN AND UNLABORED RESPIRATIONS; CLEAR LUNG SOUNDS UPON AUSCULTATION. IV SITE HEALTHY AND PATENT. 5 LAP INCISIONS AND A MIDLINE NOTED COVERED WITH GAUZE AND DERMABOUND. JANINE TO RT SIDE; EMPTIED CONTENTS, 10 MLS OF SEROSANGUINEOUS DRAINAGE. HYPOACTIVE BOWEL SOUNDS X4 QUADRANTS, PT STATES SHE IS PASSING GAS. YBARRA IN PLACE TO GRAVITY WITH CLEAR YELLOW URINE. SAFETY PRECAUTIONS IN PLACE WITH CALL LIGHT IN REACH.
--- NOTE | 2022-11-22 21:30 | NUR ---
PT C/O ABDOMINAL PAIN, LEVEL8/10; ADMINISTERED PAIN MED PER EMAR. SAFETY PRECAUTIONS IN PLACE WITH CALL LIGHT IN REACH.
[2022-11-23] VITALS (7 sets, daily range): BP systolic 115–126; BP diastolic 56–62
--- NOTE | 2022-11-23 | NUR ---
PT RESTING ON BED, SUPINE POSITION. NO DISTRESS OR PAIN NOTED. YBARRA IN PLACE TO GRAVITY, WITH DARL YELLOW URINE. EMPTIED JANINE DRAIN, 10 MLS OF SEROSANGUINEOUS DRAINAGE. SAFETY PRECAUTIONS IN PLACE WITH CALL LIGHT IN REACH.
--- NOTE | 2022-11-23 04:28 | NUR ---
PT RESTING ON BED HIGH FOWLERS POSITION. VS COMPLETED. PT UP TO GET DAILY WEIGH. PT BACK IN BED. PT C/O ABDOMINAL PAIN, LEVEL10/10; ADMINISTERED PAIN MED PER EMAR. SAFETY PRECAUTIONS IN PLACE WITH CALL LIGHT IN REACH.
[2022-11-23 06:30] LABS: HEMATOCRIT 23.5 % (37.0-47.0); HEMOGLOBIN 7.8 g/dl (12.0-16.0)
--- NOTE | 2022-11-23 08:00 | NUR ---
RECEIEVED REPORT FROM NIGHTSHIFT NURSE. PT LAYING FOWLERS IN BED. 5 INCISIONS NOTED ON PT ABD, DRESSINGS DRY AND INTACT. JANINE DRAIN PRESENT WITH BLOODY OUTPUT. DRESSING IS SATURATED WITH BLOOD. PT STATES HAVING MINOR PAIN AT THIS TIME. CALL LIGHT WITHIN REACH AND SAFETY PRECAUTIONS IN PLACE.
[2022-11-23 11:31] LABS: HEMATOCRIT 23.5 % (37.0-47.0); HEMOGLOBIN 7.8 g/dl (12.0-16.0)
--- NOTE | 2022-11-23 12:00 | NUR ---
PT SITTING UP IN CHAIR EATING LUNCH. ENCOURAGED PT TO WALK AFTER LUNCH. DENIES ANY PAIN AT THIS TIME. CALL LIGHT WITHIN REACH AND SAFETY PRECAUTIONS IN PLACE.
--- NOTE | 2022-11-23 16:18 | NUR ---
YBARRA CATHETER REMOVED PER PHYSICIANS ORDERS. EDUCATED PT ON POST VOID BLADDER SCAN. ASSISSTED PT IN WALKING DOWN HALF OF HALLWAY AND BACK. PT GAIT UNSTEADY AND WEAK SO USED WALKER ASSISTANTS. PT WALKED WITHOUT OXYGEN AND O2 SATURATION DROPPED TO 87%. PT PUT BACK ON NASAL CANNULA O2 2L AND SATURATION WENT BACK UP TO 93%. PT STATES HAVING SOME DISCOMFORT WHEN MOVING BUT NO SEVERE PAIN AT THIS TIME. PT WAS ABLE TO FLATULATE DURING WALK. PT AMBULATED BACK INTO BED, LAYING FOWLERS. CALL LIGHT WITHIN REACH AND SAFETY PREFCAUTIONS IN PLACE.
--- NOTE | 2022-11-23 20:00 | NUR ---
RECEIVED REPORT FROM NURSE ALEXANDRU PATIENT RESTING IN BED, ALERT ORIENTED, SALINE LOCK ON RT HAND G 20 PATENT FLUSHES WELL, LUNG SOUNDS CLEAR, BOWEL SOUNDS HYPOACTIVE, PATIENT STATED PASSING GAS, C/O DULL PAIN ON ABDOMEN PS 7/10, WILL MEDICATE, MIDLINE DRESSING SATURATED, WILL CHANGE PER ORDER, JANINE DRAIN OUTPUT 40CC SANGUINEOUS DRAINAGE, PATIENT ALREADY VOIDED, UNABLE TO MEASURE, BLADDER SCAN DONE POST VOID 17CC,CALL LIGHT IN REACH.
--- NOTE | 2022-11-24 | NUR ---
NEW DRESSING IN PLACE IN ABDOMEN, DENIES PAIN AT THIS TIME.PATIENT NOT IN DSITRESS CALL LIGHT IN REACH.
--- NOTE | 2022-11-24 04:00 | NUR ---
PATIENT IN BED, RESTING, NOT IN DISTRESS NO DISCOMFORTS NOTED AT THIS TIME, CALL LIGHT IN REACH.
[2022-11-24 04:41] VITALS: BP 134/63
[2022-11-24 06:39] VITALS: BP 114/65
--- NOTE | 2022-11-24 07:39 | NUR ---
RECEIVED REPORT FROM NIGHTSHIFT NURSE. PT LAYING FOWLERS IN BED. A/OX3 COMPLAINS OF DISCOMFORT IN ABD. PT STATES STILL HAS NOT HAD BM BUT PASSING GAS. INFORMED PT OF BENEFITS OF WALKING AFTER MEALS AND ENCOURAGED ASSISTING WITH WALKING AFTER BREAKFAST. DRESSINGS ON ABD DRY AND INTACT. JANINE DRAIN PRESENT WITH BLOOD OUTPUT NOTED. CALL LIGHT WITHIN REACH AND SAFETY PRECAUTIONS IN PLACE.
--- NOTE | 2022-11-24 08:45 | NUR ---
patient was walked down the hallway this morning.
[2022-11-24 10:05] VITALS: BP 123/71
--- NOTE | 2022-11-24 11:06 | NUR ---
REMOVED PT JANINE DRAIN PER PHYSICIAN ORDER. 25CC OUTPUT OF RED DISCHARGE BEFORE REMOVAL. DRESSED WITH PETROLLIUM JELLY PAD, GAUZE AND TEGADERM. PT TOLERATED WELL. CALL LIGHT WITHIN REACH AND SAFETY PRECAUTIONS IN PLACE.
--- NOTE | 2022-11-24 11:59 | NUR ---
PT SITTING UP IN CHAIR EATING LUNCH. VISITOR PRESENT IN ROOM. DENIES ANY PAIN AT THIS TIME. CALL LIGHT WITHIN REACH AND SAFETY PRECAUTIONS IN PLACE.
[2022-11-24] MEDS ORDERED: PERCOCET 5/325M1 TAB PO (12:38)
--- NOTE | 2022-11-24 14:05 | NUR ---
Discharge instructions given. Patient verbalizes understanding of same. Discharged in stable condition via Wheelchair to Home with family. All belongings sent with pt.
[2022-12-01] MEDS ORDERED: KLOR-CON M2020 MEQ PO (09:46)
[2022-12-01] MEDS ORDERED: LASIX20 MG PO (09:46)
== END 2022-11-24 14:01 | disposition home or self-care (01) | DRG 354 ==
LOC: ORM 08:57 → MS2 15:42
PROVIDERS: ADMIT Surgery; ATTEND Surgery
PROC: 0WUF0JZ Supplement Abdominal Wall with Synthetic Substitute, Open Approach (ICD-10-PCS; principal; 2022-11-21)
PROC: 0W3P8ZZ Control Bleeding in Gastrointestinal Tract, Via Natural or Artificial Opening Endoscopic (ICD-10-PCS; 2022-11-21)
PROC: 0T9B70Z Drainage of Bladder with Drainage Device, Via Natural or Artificial Opening (ICD-10-PCS; 2022-11-22)
DX: K43.2 Incisional hernia without obstruction or gangrene (principal); D62 Acute posthemorrhagic anemia; K91.71 Accidental puncture and laceration of a digestive system organ or structure during a digestive system procedure; K66.0 Peritoneal adhesions (postprocedural) (postinfection); N99.89 Other postprocedural complications and disorders of genitourinary system; R33.8 Other retention of urine; I10 Essential (primary) hypertension; E11.9 Type 2 diabetes mellitus without complications; E03.9 Hypothyroidism, unspecified; Y83.1 Surgical operation with implant of artificial internal device as the cause of abnormal reaction of the patient, or of later complication, without mention of misadventure at the time of the procedure; Z86.010 Personal history of colon polyps; Z90.49 Acquired absence of other specified parts of digestive tract; Z79.85 Long-term (current) use of injectable non-insulin antidiabetic drugs; Z79.84 Long term (current) use of oral hypoglycemic drugs; Z20.822 Contact with and (suspected) exposure to COVID-19
CPT/HCPCS: C1781; J0690

== ENCOUNTER 2023-01-10 07:36 | Day surgery (SDC) | payer MEDICARE, MEDICAID ==
[~2023-01-10] VITALS: Ht 162.6 cm; Wt 83.9 kg
[~2023-01-10 07:36] MED LIST changes: +KLOR-CON M2020 MEQ PO; +LASIX20 MG PO; +PERCOCET 5/321 COMBO PO; +PERCOCET 5/325M1 TAB PO; +XANAX XR0.5 MG PO
[2023-01-10 12:14] VITALS: BP 139/86
== END 2023-01-10 09:56 | disposition home or self-care (01) ==
LOC: ORM 07:36
PROVIDERS: ATTEND Physical Medicine & Rehabilitation
DX: G89.4 Chronic pain syndrome (principal); M54.50 Low back pain, unspecified; M16.12 Unilateral primary osteoarthritis, left hip; M19.012 Primary osteoarthritis, left shoulder; M54.2 Cervicalgia
CPT/HCPCS: Q9967

== ENCOUNTER 2023-02-08 09:07 | Day surgery (SDC) | payer MEDICARE, MEDICAID ==
[~2023-02-08] VITALS: Ht 162.6 cm; Wt 81.6 kg
[~2023-02-08 09:07] MED LIST changes: +JARDIANCE25 MG PO
[2023-02-08 12:22] VITALS: BP 150/92
== END 2023-02-08 12:32 | disposition home or self-care (01) ==
LOC: ENDO 09:07 → ORM 09:30 → ENDO 11:45
PROVIDERS: ATTEND Surgery
PROC: 0DJD8ZZ Inspection of Lower Intestinal Tract, Via Natural or Artificial Opening Endoscopic (ICD-10-PCS; principal; 2023-02-08)
DX: Z12.11 Encounter for screening for malignant neoplasm of colon (principal); K64.8 Other hemorrhoids; I10 Essential (primary) hypertension; E11.9 Type 2 diabetes mellitus without complications; Z86.010 Personal history of colon polyps; Z79.84 Long term (current) use of oral hypoglycemic drugs; Z79.85 Long-term (current) use of injectable non-insulin antidiabetic drugs